=== PATIENT | female | born 1950 | race Caucasian/White ===

== ENCOUNTER 2021-03-01 10:19 | Day surgery (SDC) | payer MEDICARE ==
[~2021-03-01] VITALS: Ht 165.1 cm; Wt 120.1 kg
[~2021-03-01 10:19] MED LIST: ACETYL L-CARNI1 EACH PO; ALPHA LIPOIC A200 MG PO; BAYER CHEWABLE81 MG PO; COZAAR100 MG PO; FEOSOL325 MG PO; LYRICA50 MG PO; ROSUVASTATIN CA40 MG PO; STIOLTO RESPIMAT4 GM IH; VENTOLIN HFA18 GM INH
[2021-03-01] MEDS ORDERED: LEVOTHYROXINE150 MC1 PO (10:42)
[2021-03-01] MEDS ORDERED: METOPROLOL SUCC50 MG PO (10:43)
[2021-03-01] MEDS ORDERED: CLOPIDOGREL75 MG PO (10:45)
--- NOTE | 2021-03-01 12:26 | NUR ---
03/01/21 Yuly Pritchett 1219-PATIENT ARRIVED TO PACU ON 4L NC RR EVEN LAYING PRONE DRESSING CDI WITH BANDAID TO RIGHT LOWER BACK. SR. IVF INFUSING. PATIENT DROWSY ANSWERS QUESTIONS DENIES PAIN OR NAUSEA. DOZES BACK TO SLEEP.
--- NOTE | 2021-03-03 16:33 | PATH ---
[facility] [address] [facility] [place], [place] [address] Signed SPECIMEN(S): A BONE MARROW - CORE SPECIMEN(S): B BONE MARROW - ASPIRATION SPECIMEN(S): C FLOW CYTOMETRY, EDTA ASP CLINICAL HISTORY: This is a 70-year-old female with kidney disease and SPEP positive monoclonal protein DIAGNOSIS SUMMARY: A. Peripheral blood - Unremarkable. - No circulating blasts or plasma cells detected. B. Bone marrow biopsy and aspiration: - Mildly increased marrow cellularity, 40%, with 1% blasts. - Trilineage hematopoiesis with mild erythroid hyperplasia with no significant dyspoiesis. - 4% lambda restricted plasma cells consistent with a plasma cell neoplasm. - Congo Red stain is negative. - Decreased marrow iron stores by Prussian Blue staining. - See Diagnostic Comment. DIAGNOSTIC COMMENT: 4% lambda-restricted plasma cells are detected, consistent with a plasma cell neoplasm. Accurate subclassification of the plasma cell neoplasm requires clinical correlation with laboratory, radiologic, and clinical findings. JLP:C1NR HISTORICAL SUMMARY: 70-year-old female with CKD and a SPEP demonstrating a M-spike (type and degree not specified in the accompanying clinical history). PERIPHERAL BLOOD: HEMOGRAM (03/01/2021): WBC 7.5 K/ul, RBC 4.59 M/ul, HGB 13.6 g/dl, HCT 42.0%, MCV 91.6 fl, MCH 29.5 pg, MCHC 32.2 g/dl, RDW 14.5%, PLT 216 K/ul, MPV 7.7 fl. AUTOMATED DIFFERENTIAL COUNT: Neutrophils 63.9%, lymphocytes 23.4%, monocytes 10.2%, eosinophils 2.0%, basophils 0.6%. The red blood cells are normocytic and normochromic with minimal anisopoikilocytosis. The neutrophils are unremarkable. Lymphocytes are composed of small mature appearing forms. Platelets appear normal in number and morphology with no platelet clumping or RBC PATIENT NAME: FLORECITA DEAL PATHOLOGY DATE OF : 46 REPORT #: [id number] PHYSICIAN: JULIA PATHOLOGY PCP: ALFREDO MATUTE DO REPORT IS CONFIDENTIAL AND NOT TO BE RELEASED WITHOUT AUTHORIZATION [facility] [address] [place], [place] [address] Signed microangiopathic effect identified. No blasts or circulating plasma cells are identified. BONE MARROW: ASPIRATE SMEARS/TOUCH IMPRINT: The aspirate smears are adequate for evaluation. Erythroid precursors are mildly increased in number and show adequate maturation with essentially normal morphology. The myeloid precursors show full maturation with unremarkable morphology. There is no increase in blasts. Plasma cells are mildly increased with a normal morphology. Megakaryocytes are identified with a normal morphology. BONE MARROW DIFFERENTIAL COUNT (300 cells): Blasts 1%, promyelocytes 1%, myelocytes 6%, metamyelocytes/bands/segs 30%, erythroid precursors 39%, lymphocytes 12%, monocytes 4%, eosinophils 3%, plasma cells 4%. M:E ratio: 1.1:1 BONE MARROW CORE BIOPSY/ASPIRATE CLOT/CELL BLOCK: The aspirate clot section and the core biopsy are adequate for evaluation. The core biopsy demonstrates unremarkable trabecular bone. The cellularity is mildly increased for age, estimated at 40%. The erythroid precursors are mildly increased in numbers with essentially unremarkable maturation. The myeloid precursors are unremarkable with no significant dyspoiesis. Blasts are not increased. Megakaryocytes appear normal in number and in morphology. No granulomas, atypical lymphoid aggregates or foreign malignant cells are detected. SPECIAL STAINS (with adequate controls): - iron (aspirate smear): Marrow iron stores appear decreased by Prussian Blue staining. No ring sideroblasts are noted. - iron (cell block): Marrow iron stores appear decreased by Prussian Blue staining. No ring sideroblasts are noted. - Congo Red (block A1): Negative. IMMUNOHISTOCHEMISTRY STAINS (performed on block A1 with adequate controls). - CD138: 4% - [place] and Lambda IHC: Lambda light chain restriction. FLOW CYTOMETRY: Bone marrow, flow cytometry: - Lambda restricted plasma cell population consistent with a plasma cell neoplasm. - See Comment. COMMENT: PATIENT NAME: FLORECITA DEAL PATHOLOGY DATE OF : 46 REPORT #: [id number] PHYSICIAN: JULIA WU PCP: ALFREDO MATUTE DO REPORT IS CONFIDENTIAL AND NOT TO BE RELEASED WITHOUT AUTHORIZATION [facility] [address] [place], [place] [address] Signed 3.4% of all analyzed cells are plasma cells with cytoplasmic lambda light chain restriction. These plasma cells are variably positive to negative for CD19 and CD56. No lymphoid light chain restriction is noted. Blasts are not increased. The myeloid and monocytic populations are unremarkable. FLOW CYTOMETRY ANALYSIS: FLOW DIFFERENTIAL (% Total CD45 vs. SSC gating): Myeloid 81%; Lymphoid 7%; Monocyte 3%; Dim CD45/Blast: 1%. Cell Count: 1.5 x 10*3/uL. POPULATION ANALYSIS: BLASTS: Analysis of the dim CD45 gate demonstrates 1% myeloblasts by CD34/CD117. LYMPHOID CELLS: The lymphocyte gate comprises 7% of total events and includes 87% T-cells with a CD4:CD8 ratio of 1.1:1 and normal lopez T-cell antigen expression. 3% of lymphocytes are polyclonal B-cells with a kappa:lambda ratio of 2.3:1. The remainders are NK-cells. MYELOID CELLS: The myeloid population comprises 81% of the total events. No aberrant or immature immunophenotypic expression is detected. MONOCYTES: The monocyte population comprises 3% of the total events. Monocytes are not increased. No aberrant immunophenotypic expression is detected. PLASMA CELLS: An increased number of plasma cells are observed in the screening gate of CD45 neg-dim/CD38. For this reason, select additional antibodies are run to further characterize the plasma cells. 2.6% of total events are plasma cells (q=[id number]) demonstrating an overall clambda predominance and variably positive staining with CD38, CD19 and CD56 (minor subset). A subset of the plasma cells (0.8% of total events) demonstrates slightly dimmer expression with CD38; CD45 DIM-NEG; and absent CD19, CD20 and CD56 with a clear clambda restriction. Initial Antibodies Used: KAPPA, LAMBDA, CD20, CD10, CD19, CD23, CD38, FMC7, CD16, CD56, CD8, CD5, CD2, CD4, CD7, CD3, CD14, CD33, CD13, HLADR, CD34, CD117, CD15, CD45 Additional Antibodies (necessary for further plasma cell analysis): ckappa, clambda, CD138. Total Antibodies Used: 27. TCS FINAL DIAGNOSIS PERFORMED BY: Facundo Plummer MD, Mar 02 2021 2:25PM CYTOGENETICS: Chromosome analysis is pending and the results will be reported in an addendum. PATIENT NAME: FLORECITA DEAL PATHOLOGY DATE OF : 46 REPORT #: [id number] PHYSICIAN: JULIA WU PCP: ALFREDO MATUTE DO REPORT IS CONFIDENTIAL AND NOT TO BE RELEASED WITHOUT AUTHORIZATION [facility] [address] [place], [place] [address] Signed FISH ANALYSIS: A FISH panel for myeloma is pending and the results will be reported in an addendum. GROSS DESCRIPTION: Two specimens are received in two containers, labeled "BF." A. The specimen, labeled "BF, core," is received in formalin and consists of two cylindrical bone core fragments measuring 0.3 in diameter and 2.0 to 2.2 in length. The specimen is entirely submitted in cassette A1 following decalcification in Immunocal. Cold ischemic time: Cannot be determined because of lack of information Approximate time in formalin: 5-1/2 hours B. The specimen, labeled "BF, clot," is received in formalin and consists of thickened clot material measuring 2.3 x 1.7 x 0.3 in aggregate. The specimen is filtered and entirely submitted in cassette(s) B1. Bone marrow inventory also includes: Two peripheral smears, one EDTA tube bone marrow, two heparin tubes, one bone marrow, and one peripheral blood. AT (under the direct supervision of a pathologist) The Gross Description was prepared using a voice recognition system. The report was reviewed for accuracy; however, sound-alike word errors, addition and/or deletions may occur. If there is any question about this report, please contact Client Services. ADDITIONAL NOTES: Immunohistochemical and/or in situ hybridization studies were performed on this case with the appropriate positive controls that react as expected. This test was developed and its performance characteristics determined by [facility]. It has not been cleared or approved by the U.S. Food and Drug Administration. The FDA has determined that such clearance or approval is not necessary. This test is used for clinical purposes. It should not be regarded as investigational or for research. [facility] is certified under the Clinical Laboratory Improvement Amendments of 1988 (CLIA) as qualified to perform high complexity clinical laboratory testing. This assay has not been validated for specimens that have been decalcified. In this case, certain antibodies were performed by both immunohistochemistry and flow cytometry analysis because flow cytometry analysis did not fully explain all the light microscopic findings. PATIENT NAME: FLORECITA DEAL PATHOLOGY DATE OF : 46 REPORT #: [id number] PHYSICIAN: JULIA WU PCP: ALFREDO MATUTE DO REPORT IS CONFIDENTIAL AND NOT TO BE RELEASED WITHOUT AUTHORIZATION [address] [address] Signed Immunohistochemistry aided in the analysis. Both methods are deemed medically necessary in this case. This test was developed and its performance characteristics determined by [facility]. It has not been cleared or approved by the US Food and Drug Administration. The FDA does not require this test to go through premarket FDA review. This test is used for clinical purposes. It should not be regarded as investigational or for research. This laboratory is certified under the Clinical Laboratory Improvement Amendments (CLIA) as qualified to perform high complexity clinical laboratory testing. PERFORMING LABORATORY: The technical component was performed by [facility], [address] [place] [address] (Media Account Executive: Renzo Smith D.O.; CLIA#: [id number]). Professional interpretation was performed at [facility], [address] [place] [address] A portion of the technical component was performed by [facility], [address] [place] [address] (Media Account Executive: Grace Hunt MD; CLIA# [id number]). [facility] the professional [facility], [address] [place] [address] [place] [address] (Media Account Executive: Corby Heller Jr., M.D., [facility]; CLIA#: [id number]). Professional interpretation was performed at [facility], [address] [place] [address]. IMAGES: [id number]: [id number]: [id number] Diagnostician: Facundo Plummer MD Pathologist Electronically Signed 03/03/2021 Copies: ~ PATIENT NAME: FLORECITA DEAL PATHOLOGY DATE OF : 46 REPORT #: [id number] PHYSICIAN: JULIA WU PCP: ALFREDO MATUTE DO REPORT IS CONFIDENTIAL AND NOT TO BE RELEASED WITHOUT AUTHORIZATION
== END 2021-03-01 13:03 | disposition home or self-care (01) ==
LOC: OPS 10:19 → DS 10:21 → OPS 12:00
PROVIDERS: ATTEND Specialist
PROC: 079T3ZX Drainage of Bone Marrow, Percutaneous Approach, Diagnostic (ICD-10-PCS; 2021-03-01)
PROC: 07DR3ZX Extraction of Iliac Bone Marrow, Percutaneous Approach, Diagnostic (ICD-10-PCS; principal; 2021-03-01 12:00)
DX: C90.00 Multiple myeloma not having achieved remission (principal); I25.10 Atherosclerotic heart disease of native coronary artery without angina pectoris; G47.33 Obstructive sleep apnea (adult) (pediatric); E78.2 Mixed hyperlipidemia; J43.1 Panlobular emphysema; E03.9 Hypothyroidism, unspecified; G25.81 Restless legs syndrome; I12.9 Hypertensive chronic kidney disease with stage 1 through stage 4 chronic kidney disease, or unspecified chronic kidney disease; N18.32 Chronic kidney disease, stage 3b; Z87.891 Personal history of nicotine dependence; D47.2 Monoclonal gammopathy; Z95.1 Presence of aortocoronary bypass graft; Z95.5 Presence of coronary angioplasty implant and graft
CPT/HCPCS: 01112; 82232; 85025; J2001; J2704; J7121

== ENCOUNTER 2021-07-20 14:01 | Emergency (ER) | payer MEDICARE ==
[~2021-07-20] VITALS: Ht 165.1 cm; Wt 119.1 kg
[~2021-07-20 14:01] MED LIST changes: +CLOPIDOGREL75 MG PO; +LEVOTHYROXINE150 MC1 PO; +METOPROLOL SUCC50 MG PO
--- NOTE | 2021-07-23 17:08 | EKG ---
[facility] [address] [facility] [place], [place] [address] Signed Normal sinus rhythm Cannot rule out Anterior infarct , age undetermined Abnormal ECG No previous ECGs available Confirmed by HEMAL ELIAS MD ([id number]) on 07/23/2021 5:08:02 PM Electronically Signed By: HEMAL ELIAS MD 07/23/21 1708 PATIENT NAME: FLORECITA DEAL Electrocardiogram DATE OF : 46 PHYSICIAN: HEMAL ELIAS MD REPORT #: [id number] REPORT IS CONFIDENTIAL AND NOT TO BE RELEASED WITHOUT AUTHORIZATION
--- NOTE | 2021-07-23 17:09 | EKG ---
[facility] [address] [place] [address] Signed Sinus bradycardia Minimal voltage criteria for LVH, may be normal variant ( Jordan product ) Septal infarct (cited on or before 20-JUL-2021) Abnormal ECG When compared with ECG of 20-JUL-2021 14:05, (Unconfirmed) T wave inversion no longer evident in Lateral leads Confirmed by HEMAL ELIAS MD ([id number]) on 07/23/2021 5:08:43 PM Electronically Signed By: HEMAL ELIAS MD 07/23/21 1709 PATIENT NAME: FLORECITA DEAL Electrocardiogram DATE OF : 46 PHYSICIAN: HEMAL ELIAS MD REPORT #: [id number] REPORT IS CONFIDENTIAL AND NOT TO BE RELEASED WITHOUT AUTHORIZATION
== END 2021-07-20 18:32 | disposition short-term general hospital (02) ==
LOC: ED 14:01
DX: I20.0 Unstable angina (principal); Z79.899 Other long term (current) drug therapy; Z79.82 Long term (current) use of aspirin
CPT/HCPCS: 36415; 71045; 80053; 83735; 83880; 84484; 85025; 85379; 93005; 93010; 96374; 96375; 96376; 99285-25; J1644; J2270; U0003

== ENCOUNTER 2021-10-02 21:27 | Emergency (ER) | payer OTHER, MEDICARE ==
[~2021-10-02] VITALS: Ht 165.1 cm; Wt 115.0 kg
[2021-10-02] MEDS ORDERED: PENICILLIN V P500 MG PO (22:05)
== END 2021-10-02 22:25 | disposition home or self-care (01) ==
LOC: ED 21:27
DX: K02.9 Dental caries, unspecified (principal); Z79.899 Other long term (current) drug therapy
CPT/HCPCS: 99282

== ENCOUNTER 2021-10-04 09:45 | Emergency (ER) | payer OTHER, MEDICARE ==
[~2021-10-04] VITALS: Ht 165.1 cm; Wt 114.8 kg
[~2021-10-04 09:45] MED LIST changes: +PENICILLIN V P500 MG PO
--- OUTSIDE RECORDS SUMMARY | 2021-10-04 09:52 | XMS ---
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 Yoana has no Care Guidelines for this patient. David VISIT COUNT (12 MO.) [address] [facility] Alianza H. TOTAL 3 NOTE: Visits indicate total known visits. ED/[facility] VISIT TRACKING (12 MO.) 10/04/2021 09:[address] [facility] [place] TYPE: Emergency COMPLAINT: - R SIDE FACIAL SWELLING 10/02/2021 21:28 EVA Valdovinos TYPE: Emergency COMPLAINT: - DENTAL PAIN DIAGNOSES: - Dental caries, unspecified - Other ferry terminal agent (current) drug therapy - Other specified disorders of teeth and supporting structures 07/20/2021 14:01 EVA Valdovinos TYPE: Emergency COMPLAINT: - CHEST PAIN, HIGH B/P, SOB DIAGNOSES: - Chest pain, unspecified - Unstable angina - intermediate manager (current) use of aspirin - Contact with and (suspected) exposure to COVID-19 - Other ferry terminal agent (current) drug therapy INPATIENT VISIT TRACKING (12 MO.) 07/20/2021 19:16 Roman GARCIA TYPE: Medical Surgical COMPLAINT: - UNSTABLE ANGINA DIAGNOSES: 0. Unstable angina 1. Non-ST elevation (NSTEMI) myocardial infarction 2. Body mass index [BMI] 40.0-44.9, adult 3. Morbid (severe) obesity due to excess calories 4. Abnormal coagulation profile 5. Do not resuscitate 6. Retention of urine, unspecified 7. Essential (primary) hypertension 8. Hyperlipidemia, unspecified 9. Atherosclerotic heart disease of [place] coronary artery with unstable angina pectoris 10. Hypothyroidism, unspecified 11. Iron deficiency anemia, unspecified 12. Monoclonal gammopathy 13. Other ferry terminal agent (current) drug therapy 14. intermediate manager (current) use of aspirin 15. Presence of aortocoronary bypass graft 16. Presence of coronary angioplasty implant and graft 17. longterm (current) use of antithrombotics/antiplatelets 18. Personal history of nicotine dependence [email or web address]
== END 2021-10-04 11:56 | disposition home or self-care (01) ==
LOC: ED 09:45
DX: K04.7 Periapical abscess without sinus (principal); I25.2 Old myocardial infarction; Z79.899 Other long term (current) drug therapy; Z79.82 Long term (current) use of aspirin
CPT/HCPCS: 99283